=== PATIENT | male | born 1970 ===

== ENCOUNTER 2018-05-08 11:29 | Day surgery (SDC) | payer SELFPAY ==
[2018-05-07 09:05] VITALS: BMI 33.6
[2018-05-08] MEDS ORDERED: Bupivacaine HCl 0.5% PF (30 ml) Inj ONE (13:17)
--- NOTE | 2018-05-08 13:19 | CP.SDSHP ---
Same Day Surgery H & P - History Proposed Procedure: Umbilical Hernia Repair Pre-Op Diagnosis: Umbilical Hernia - Previous Medical/Surgical History Previous Surgical History: none - Allergies Allergies: Allergies No Known Allergies Allergy (Verified 05/08/18 12:21) - Current Medications Current Medications: Trazodone for sleep - Physical Exam Vital Signs: Vital Signs 05/08/18 05/08/18 12:05 12:10 Temperature 98.6 F Pulse Rate 88 88 Respiratory 18 Rate Blood Pressure 133/89 O2 Sat by Pulse 97 Oximetry Mental Status: Alert & Oriented x3 Neuro: WNL Heart: WNL Lungs: WNL GI: WNL - {Optional Preform as Required} Abdomen: Other (Umbilical hernia) - Impression Impression: 47 yo M for umbilical hernia repair Pt. Evaluated Today:Candidate for Anesthesia & Procedure: Yes - Date & Time Date: 05/08/18 Time: 13:19 Short Stay Discharge - Short Stay Discharge Admitting Diagnosis/Reason for Visit: K42.9 Disposition: HOME/ ROUTINE Referrals: Jaye Jenkins MD [Staff Provider] - Follow-up: Dr. Jenkins in 1 week Additional Instructions (Diet, Activity): Resume Regular diet and light activities. Absolutely No Heavy Lifting >10lbs for 6 weeks.
[2018-05-08] MEDS ORDERED: ceFAZolin IV 1 gm in Dextrose 1 GM/50 ML BAG IVPB ONE (13:24)
[2018-05-08] MEDS ORDERED: Lactated Ringer's 1,000 ML IV ONE ×3 (14:21→16:47)
[2018-05-08] MEDS ORDERED: Dexamethasone 4 mg/1 ml IVP PRN (15:34)
--- NOTE | 2018-05-08 15:36 | PCM.SURG1 ---
Surgeon's Initial Post Op Note - Surgeon's Notes Surgeon: Gregory Inspector Eyeglass: PGY4 Type of Anesthesia: General Endo Pre-Operative Diagnosis: Incarcerated ventral hernia Operative Findings: Incarcerated omentum in ventral hernia Post-Operative Diagnosis: Incarcerated ventral hernia Operation Performed: Ventral hernia repair with mesh Specimen/Specimens Removed: hernia sac and contents Estimated Blood Loss: EBL {In ML}: 10 Blood Products Given: N/A Drains Used: No Drains Post-Op Condition: Good Date of Surgery/Procedure: 05/08/18 Time of Surgery/Procedure: 13:58
[2018-05-08] MEDS ORDERED: Lactated Ringer's 1,000 ML IV SCH (15:45)
[2018-05-08] MEDS ORDERED: Oxycodone/Acetaminophen 5/325 mg Tab PO ONE (15:46)
[2018-05-08] MEDS: HYDROmorphone 0.5 mg/0.5 ml ISec IVP PRN ×2 (15:55→16:15)
[2018-05-08] MEDS ORDERED: HYDROmorphone 1 mg/ml ISec ONE ×2 (15:56→16:16)
[2018-05-08 17:04] VITALS: RESP 18
[2018-05-08 17:09] VITALS: O2SAT 95
[2018-05-08 18:16] VITALS: BP 126/91; PULSE 101; TEMP 98.3
--- NOTE | 2018-05-09 02:13 | OP ---
Copied To: Zay Casillas DO Attending MD: Jaye Jenkins MD PROCEDURE DATE: 05/08/2018 SURGEON: Jaye Jenkins MD TICKET MANAGER: Zay Casillas DO, PGY-4 ANESTHESIA: General endotracheal. PREOPERATIVE DIAGNOSIS: Incarcerated ventral hernia. POSTOPERATIVE DIAGNOSIS: Incarcerated ventral hernia. OPERATION PERFORMED: Ventral hernia repair with mesh. DESCRIPTION OF THE OPERATION: The patient is a 47-year-old male who was brought to the operating room, administered general endotracheal anesthesia after he was positioned in the supine position and prepped and draped in the usual sterile manner. A large soft mass was visible in the superior aspect of the umbilicus. A curvilinear transverse incision was made across the hernia, and the hernia was dissected down to the fascia circumferentially until the entire hernia ring was clear. Then, the hernia sac was opened. Attempt was made to reduce the contents. We were unable to, so we transected the omentum. We serial clamped and divided the omentum with 3-0 Vicryl ties, and we were then able to reduce the stump back into the abdomen. Finger sweep was performed inside the hernia to ensure that there were no other attachments along the peritoneum. After cleaning the edges of the defect, a 6.25 cm Bard Ventralex hernia patch was introduced into the defect and sutured in place with 2-0 Surgipro. Mesh was found to be in good position, and the incision was then reinspected for hemostasis. After this was finished, the skin edges were reapproximated using a 4-0 Monocryl running suture. A Dermabond skin glue was applied over the top of the incision, and packing was placed in the umbilicus and covered with sterile dressing. The patient tolerated the procedure well and was returned to the PACU in stable condition. COMPLICATIONS: None. BLOOD LOSS: 10 mL. Zay Casillas DO Jaye Jenkins MD
== END 2018-05-08 18:40 | disposition home or self-care (01) ==
LOC: H.OPSURG 11:29
PROVIDERS: ATTEND Specialist
DX: K43.6 Other and unspecified ventral hernia with obstruction, without gangrene (principal); E78.5 Hyperlipidemia, unspecified
CPT/HCPCS: 49653; 88302; 88305; C1781; J0690; J1170; J2765; J7030; J7120

== ENCOUNTER 2018-05-20 11:23 | Emergency (ER) | payer SELFPAY ==
[2018-05-20 11:23] VITALS: BMI 33.6
[2018-05-20 11:28] VITALS: TEMP 98.4
--- NOTE | 2018-05-20 11:43 | ED PDOC ---
HPI: General Adult Time Seen by Provider: 05/20/18 11:39 Chief Complaint (Nursing): Male Genitourinary Chief Complaint (Provider): penile pain History Per: Patient Additional Complaint(s): 47-year-old male status post ventral hernia repair 3 weeks ago presents to emergency department with 5 days of pain to penile shaft. Patient has pain when urinating as well but has not noticed any discharge or hematuria. Patient denies nausea, vomiting, diarrhea or constipation. He denies any groin pain or abdominal pain, no fever or chills. Patient states he is currently not sexually active and denies concern for STDs. PMD; [facility] Past Medical History Reviewed: Historical Data, Nursing Documentation, Vital Signs Vital Signs: Last Vital Signs Temp 98.4 F 05/20/18 11:36 Pulse 90 05/20/18 11:36 Resp 20 05/20/18 11:36 BP 153/97 H 05/20/18 11:36 Pulse Ox 98 05/20/18 11:58 - Medical History PMH: Depression - Surgical History Surgical History: Hernia Repair - Family History Family History: States: No Known Family Hx - Living Arrangements Living Arrangements: With Family - Social History Current smoker - smoking cessation education provided: No Alcohol: None Drugs: Denies - Home Medications Home Medications: Ambulatory Orders Medication Instructions Recorded Mirtazapine [Remeron] 15 mg PO HS 06/05/16 traZODone [Desyrel] 50 mg PO HS 06/05/16 oxyCODONE/Acetaminophen [Percocet 1 tab PO Q4 PRN 05/08/18 5/325 mg Tab] - Allergies Allergies/Adverse Reactions: Allergies Allergy/AdvReac Type Severity Reaction Status Date / Time No Known Allergies Allergy Verified 05/20/18 11:36 Review of Systems ROS Statement: Except As Marked, All Systems Reviewed And Found Negative Constitutional: Negative for: Fever, Chills Cardiovascular: Negative for: Chest Pain Respiratory: Negative for: Cough Gastrointestinal: Negative for: Nausea, Vomiting, Abdominal Pain Genitourinary Male: Positive for: Penile Pain. Negative for: Dysuria, Frequency , Incontinence, Hematuria, Penile Discharge, Scrotal Pain, Rash Physical Exam - Reviewed Nursing Documentation Reviewed: Yes Vital Signs Reviewed: Yes - Physical Exam Appears: Positive for: Well, Non-toxic, No Acute Distress Skin: Positive for: Normal Color. Negative for: Rash Eye Exam: Positive for: Normal appearance Cardiovascular/Chest: Positive for: Regular Rate, Rhythm Respiratory: Positive for: Normal Breath Sounds Gastrointestinal/Abdominal: Positive for: Other (Surgical scar and ecchymosis noted to umbilical region, minimal tenderness with no distention, no rebound, no guarding, remainder of abdomen is nontender) Male Genital Exam: Positive for: other (Normal external genitalia, normal- appearing uncircumcised penis with no lesions or active drainage noted, no erythema noted to glans penis) Back: Negative for: L CVA Tenderness, R CVA Tenderness Extremity: Positive for: Normal ROM Neurologic/Psych: Positive for: Alert, Oriented - Laboratory Results Result Diagrams: 05/20/18 12:16 05/20/18 12:16 - ECG O2 Sat by Pulse Oximetry: 98 Pulse Ox Interpretation: Normal Medical Decision Making Medical Decision Makin-year-old male with penile pain Plan: CBC CMP UA IVF Patient was offered pain medication but he declined Patient states pain is improved after fluids were administered. Dr. Casillas, surgical garment inspector, at bedside to see patient. States that abdomen appears benign and the current complaint is unrelated to recent surgery. Patient is stable for discharge and has follow-up on June 05 with surgery clinic. He was advised to take NSAIDs for pain as needed. Urine culture was sent and patient was advised that he will receive a call for any positive results. Disposition - Clinical Impression Clinical Impression: Pain of male genitalia - Patient ED Disposition Is Patient to be Admitted: No Counseled Patient/Family Regarding: Studies Performed, Diagnosis, Need For Followup - Disposition Referrals: [facility] [Outside] Disposition: Routine/Home Disposition Time: 14:27 Condition: STABLE Additional Instructions: Tylenol or Advil as needed for pain. Follow-up as scheduled in 2 weeks with surgical clinic or return to ED any time if acutely worse. Instructions: Acute Abdomen (Belly Pain) Forms: [employer] (Togolese) Results - Lab Results Lab Results: 05/20/18 05/20/18 05/20/18 12:16 12:16 12:16 WBC 9.0 RBC 5.03 Hgb 15.5 Hct 45.3 MCV 90.1 MCH 30.8 MCHC 34.2 RDW 13.8 Plt Count 181 MPV 9.0 Neut % (Auto) 62.5 Lymph % (Auto) 29.4 [place] % (Auto) 5.4 Eos % (Auto) 2.2 Baso % (Auto) 0.5 Neut # (Auto) 5.6 Lymph # (Auto) 2.6 [place] # (Auto) 0.5 Eos # (Auto) 0.2 Baso # (Auto) 0.0 Sodium 140 Potassium 4.4 Chloride 105 Carbon Dioxide 29 Anion Gap 10 BUN 16 Creatinine 0.7 L Est GFR ( Amer) > 60 Est GFR (Non-Af Amer) > 60 Random Glucose 122 H Calcium 9.0 Total Bilirubin 0.3 AST 37 ALT 48 Alkaline Phosphatase 84 Total Protein 7.3 Albumin 4.3 Globulin 3.0 Albumin/Globulin Ratio 1.4 Urine Color Straw Urine Clarity Clear Urine pH 7.0 Ur Specific [place] 1.014 Urine Protein Negative Urine Glucose (UA) Neg Urine Ketones Negative Urine Blood Negative Urine Nitrate Negative Urine Bilirubin Negative Urine Urobilinogen 0.2-1.0 Ur Leukocyte Esterase Neg Urine RBC (Auto) < 1 Urine Microscopic WBC 1
[2018-05-20] MEDS ORDERED: Sodium Chloride 0.9% 1,000 ML IV STA (11:57)
[2018-05-20 12:21] LABS: BASO % 0.5 % (0.0-2.0); EOS # 0.2 K/uL (0.0-0.7); EOS % 2.2 % (0.0-4.0); HEMOGLOBIN 15.5 g/dL (12.0-18.0); LYMPH # 2.6 K/uL (1.0-4.3); LYMPH % 29.4 % (20.0-40.0); MEAN CELL VOLUME 90.1 fl (80.0-94.0); MEAN CORPUSCULAR HEMOGLOBIN 30.8 pg (27.0-31.0); MEAN CORPUSCULAR HGB CONC 34.2 g/dL (33.0-37.0); MONO # 0.5 K/uL (0.0-0.8); MONO % 5.4 % (0.0-10.0); NEUT # 5.6 K/uL (1.8-7.0); NEUT % 62.5 % (50.0-75.0); RBC 5.03 Mil/uL (4.40-5.90); RED CELL DISTRIBUTION WIDTH 13.8 % (11.5-14.5)
[2018-05-20 12:24] LABS: URINE BILIRUBIN NEGATIVE (NEGATIVE); URINE BLOOD NEGATIVE (NEGATIVE); URINE CLARITY CLEAR (Clear); URINE COLOR STRAW (YELLOW); URINE GLUCOSE (UA) NEG (Normal); URINE LEUKOCYTE ESTERASE NEG Leu/uL (Negative); URINE PROTEIN NEGATIVE (NEGATIVE); URINE UROBILINOGEN 0.2-1.0 mg/dL (0.2-1.0)
[2018-05-20 13:05] LABS: ALB/GLOB RATIO 1.4 (1.0-2.1); ALBUMIN 4.3 g/dL (3.5-5.0); ALT/SGPT 48 U/L (21-72); AST/SGOT 37 U/L (17-59); BLOOD UREA NITROGEN 16 mg/dl (9-20); GFR NON-AFRICAN AMERICAN > 60
[2018-05-20 15:14] VITALS: BP 148/90; PULSE 88; RESP 18; O2SAT 99
== END 2018-05-20 14:25 | disposition home or self-care (01) ==
LOC: H.ER 11:23
DX: N50.819 Testicular pain, unspecified (principal); R10.9 Unspecified abdominal pain
CPT/HCPCS: 80053; 81003; 85025; 87086; 87491; 87591; 99284; J7030